=== PATIENT | male | born 1945 | race Caucasian/White ===

== ENCOUNTER 2017-03-21 13:04 | Emergency (ER) | payer MEDICARE ==
--- NOTE | 2017-03-21 14:58 | UC ---
Throat Pain/Nasal Rubén HPI - HPI Summary HPI Summary: Pt presents with 2 days of sore throat. He has been taking ibuprofen and mucinex with no relief. He is going on vacation tomorrow and would like an antibiotic. Denies fever, chills, SOB, chest pain, abdominal pain, n/v/d/c, or body aches - History of Current Complaint Stated Complaint: SWOLLEN SORE THROAT, AND COUGH Time Seen by Provider: 03/21/17 14:58 Hx Obtained From: Patient Severity: Mild Pain Intensity: 3 Pain Scale Used: 0-10 Numeric - Allergies/Home Medications Allergies/Adverse Reactions: Allergies Allergy/AdvReac Type Severity Reaction Status Date / Time No Known Allergies Allergy Verified 03/21/17 15:00 PMH/Surg Hx/FS Hx/Imm Hx Cardiovascular History: Cardiac Disease, Hypertension - Surgical History Surgical History: Yes Surgery Procedure, Year, and Place: Two inguinal hernia repairs, left and right. Right 2012 Left 20 years ago - Social History Occupation: Retired Lives: Alone Alcohol Use: Daily Alcohol Amount: 1-2/DAY Substance Use Type: None Smoking Status (MU): Never Smoked Tobacco - Immunization History Most Recent Tetanus Shot: Unknown Review of Systems Constitutional: Negative Skin: Negative Eyes: Negative ENT: Sore Throat Respiratory: Negative Cardiovascular: Negative Gastrointestinal: Negative All Other Systems Reviewed And Are Negative: Yes Physical Exam Triage Information Reviewed: Yes Appearance: Well-Appearing, No Pain Distress, Well-Nourished Vital Signs Reviewed: Yes Eyes: Positive: Conjunctiva Clear. Negative: Conjunctiva Inflamed, Discharge ENT: Positive: Hearing grossly normal, Pharyngeal erythema, TMs normal, Uvula midline. Negative: Nasal congestion, Nasal drainage, TM bulging, TM dull, TM red, Tonsillar swelling, Tonsillar exudate, Muffled voice, Hoarse voice, Sinus tenderness Neck: Positive: Supple, Nontender, No Lymphadenopathy Respiratory: Positive: Chest non-tender, Lungs clear, Normal breath sounds, No respiratory distress, No accessory muscle use Cardiovascular: Positive: Pulses Normal, Brisk Capillary Refill Neurological: Positive: Alert Psychological: Positive: Age Appropriate Behavior Skin: Negative: rashes Throat Pain/Nasal Course/Dx - Course Course Of Treatment: POC strep neg. Very likely a viral pharyngitis/sore throat - he is going on vacation and is requesting an antibiotic. We had a discussion that an antibiotic is unlikely to provide any benefit to his current conditions, but he says he would prefer to take something. - Differential Dx/Diagnosis Differential Diagnosis/HQI/PQRI: Mononucleosis, Pharyngitis, Tonsillitis, URI Provider Diagnoses: Pharyngitis Discharge - Discharge Plan Condition: Stable Disposition: HOME Prescriptions: Amoxicillin PO (*) [Amoxicillin 500 MG CAP*] 500 mg PO Q12H #14 cap Patient Education Materials: Pharyngitis (ED) Referrals: Kendell Rivera MD [Primary Care Provider] - Additional Instructions: If you develop a fever, shortness of breath, chest pain, new or worsening symptoms - please call your PCP or go to the ED.
[2017-03-21 15:28] VITALS: BP 128/86
== END 2017-03-21 15:33 | disposition home or self-care (01) ==
LOC: UCEAST 13:04
DX: J02.9 Acute pharyngitis, unspecified (principal); I11.9 Hypertensive heart disease without heart failure
CPT/HCPCS: 87651; 99212; G0463